=== PATIENT | female | born 1980 | race Caucasian/White ===

== ENCOUNTER 2018-05-03 13:30 | Inpatient (IN) | payer MEDICAID ==
[~2018-05-03] VITALS: Ht 160 cm; Wt 109.8 kg
[2018-05-03] MEDS ORDERED: METHYLERGONOVINE MALEATE 0.2 MG/ML AMP IM ONE (14:09)
[2018-05-03] MEDS ORDERED: LACT. RINGERS/OXYTOCIN 20UNITS 1,000 ML IV SCH (14:58)
[2018-05-03] MEDS ORDERED: LACTATED RINGER'S 1,000 ML IV SCH (14:58)
[2018-05-03] MEDS ORDERED: LIDOCAINE 2% (LOCAL ANESTH.) PF 5ml SDV ID ONE (15:00)
[2018-05-03] MEDS ORDERED: METHYLERGONOVINE MALEATE 0.2 MG/ML AMP IM PRN (15:00)
[2018-05-03 15:52] LABS: Albumin 2.5 g/dL (3.4-5.0); Basophils # (auto) 0 uL; Basophils % (auto) 0.2 % (0.0-2.0); Calcium 8.9 mg/dL (8.5-10.1); Eosinophils # (auto) 0 uL; Eosinophils % (auto) 0.1 % (0.0-7.0); Hematocrit 40.6 % (36.0-46.0); Hemoglobin 13.7 g/dL (12.2-16.2); Lymphocytes % (auto) 6.5 % (10.0-50.0); Mean Corpuscular Hemoglobin 29.7 pg (28.0-32.0); Mean Corpuscular Hgb Conc. 33.9 g/dL (32.0-36.0); Mean Corpuscular Volume 87.8 fL (80.0-100.0); Monocytes # (auto) 0.6 uL; Monocytes % (auto) 3.9 % (0.0-12.0); Neutrophils # (auto) 14.4 uL; Neutrophils % (auto) 89.3 % (37.0-80.0); Platelet Count (auto) 270 10^3/uL (140-450); Potassium 3.9 mmol/L (3.5-5.1); Red Blood Cells 4.62 10^6/uL (4.0-5.20); Red Cell Distribution Width 13.8 % (11.8-14.3); Uric Acid 3.6 mg/dL (2.6-6.0); White Blood Cell 16.2 10^3/uL (4.4-10.8)
[2018-05-03 15:54] LABS: BUN/Creatinine Ratio 15.9; Bilirubin, Total 0.3 mg/dL (0.2-1.0); Total Protein 6.4 g/dL (6.4-8.2)
[2018-05-03 15:58] LABS: INR 0.9 (0.9-1.15); Partial Thromboplastin Time 30.8 sec (23.78-33.04); Prothrombin Time 9.7 sec (9.27-12.13)
[2018-05-03] MEDS ORDERED: WITCH HAZEL-GLYCERIN PAD TOP PRN (19:45)
[2018-05-03] MEDS ORDERED: PHISODERM TOP SOLN 240ML BTL TOP PRN (19:45)
[2018-05-03] MEDS ORDERED: ACETAMINOPHEN 325 MG TAB PO PRN (19:45)
[2018-05-03] MEDS ORDERED: DERMOPLAST 60ML BOTTLE TOP PRN (19:45)
[2018-05-03] MEDS: IBUPROFEN 600 MG TAB PO PRN (19:56)
[2018-05-03 22:00] VITALS: BP 117/59
[2018-05-04] MEDS: IBUPROFEN 600 MG TAB PO PRN (00:39)
[2018-05-04 03:30] VITALS: BP 137/71
[2018-05-04 05:06] LABS: RPR Non Reactive (Non Reactive)
[2018-05-04] MEDS ORDERED: TETANUS-DIPTH-ACEL PERTUSSIS 0.5ML SYRG IM ONE (07:00)
[2018-05-04 07:22] VITALS: BP 99/54
[2018-05-04] MEDS ORDERED: PREN-96 PO (07:37)
[2018-05-04 11:00] VITALS: BP 110/59
[2018-05-04 15:00] VITALS: BP 123/72
== END 2018-05-04 16:45 | disposition home or self-care (01) | DRG 560 ==
LOC: LDRP 13:30 → OBSVTOIN 13:30 → LDRP 14:19
PROVIDERS: ADMIT Obstetrics & Gynecology; ATTEND Obstetrics & Gynecology
PROC: 10E0XZZ Delivery of Products of Conception, External Approach (ICD-10-PCS; principal; 2018-05-03)
PROC: 0HQ9XZZ Repair Perineum Skin, External Approach (ICD-10-PCS; 2018-05-03)
DX: O62.3 Precipitate labor (principal); O70.0 First degree perineal laceration during delivery; O77.0 Labor and delivery complicated by meconium in amniotic fluid; Z37.0 Single live birth; Z3A.39 39 weeks gestation of pregnancy
CPT/HCPCS: 36415; 59409; 80053; 84550; 85025; 85610; 85730; 86592; 86850; 86900; 86901; 90715; 96365; 96366; 96372

== ENCOUNTER 2022-06-29 10:01 | Emergency (ER) | payer MEDICAID ==
[~2022-06-29] VITALS: Ht 160 cm; Wt 94.5 kg
[~2022-06-29 10:01] MED LIST: PREN-96 PO
[2022-06-29 10:16] VITALS: BP 97/63
[2022-06-29] MEDS ORDERED: AZITTAB PO (10:58)
== END 2022-06-29 11:43 | disposition home or self-care (01) ==
LOC: ER 10:01
DX: J06.9 Acute upper respiratory infection, unspecified (principal); Z79.899 Other long term (current) drug therapy